=== PATIENT | male | born 2005 | race Caucasian/White ===

== ENCOUNTER 2023-12-04 09:57 | Outpatient (REF) | payer OTHER, SELFPAY ==
--- NOTE | ~2023-12-04 | US_ITS ---
EXAMINATION: US EXTREMITY, RIGHT CALF SOFT TISSUES CLINICAL INFORMATION: Right calf palpable mass. COMPARISON: None available. TECHNIQUE: Using a linear array transducer with grayscale and color modalities, ultrasound examination is performed of the area of clinical concern at the posterior right calf. FINDINGS: The cutaneous, subcutaneous, muscular and fascial planes are unremarkable. No mass or fluid collection is seen. There is no lymphadenopathy. No foreign body is seen. Vascular structures are unremarkable. US/US extremity nonvascular IMPRESSION: Unremarkable examination. If a clinical question of mass persists, consider MRI evaluation as a more sensitive imaging modality for subtle lesion.
== END 2023-12-04 09:58 | disposition home or self-care (01) ==
LOC: HO.UMASIMG 09:57
PROVIDERS: Visit Provider Internal Medicine
DX: R22.41 Localized swelling, mass and lump, right lower limb (principal)
CPT/HCPCS: 76882